=== PATIENT | female | born 2005 | race Caucasian/White ===

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

== ENCOUNTER 2023-01-05 13:18 | Outpatient (CLI) | payer OTHER, SELFPAY ==
[2023-01-05 15:19] LABS: Basophils Percent Auto 0.2 % (0.2-1.2); Eosinophils Percent Auto 0.2 % (0-4.4); Hematocrit 34.3 % (37.0-47.0); Hemoglobin 11.3 g/dL (12.0-15.0); Immature Granulocyte Absolute 0.07 K/mm3 (0.00-0.031); Immature Granulocyte Percent A 0.6 % (0-0.5); Lymphocytes Absolute Auto 2.74 K/mm3 (0.9-3.2); Mean Corpuscular HGB Conc 32.9 g/dl (32-36); Mean Corpuscular Hemoglobin 29.9 pg (26-34); Mean Corpuscular Volume 90.7 fl (80-100); Mean Platelet Volume 10.5 fl (7.4-10.4); Monocytes Absolute Auto 0.4 K/mm3 (0.1-0.6); Monocytes Percent Auto 3.5 % (2.6-8.5); Neutrophils Absolute Auto 9.1 K/mm3 (1.3-6.7); Neutrophils Percent Auto 73.5 % (45.5-73.1); Platelet Count Result 271 k/mm3 (150-375); Red Blood Count 3.78 M/mm3 (4.2-5.4); Red Cell Distribution Width 13.2 % (11.5-14.5); White Blood Count 12.4 K/mm3 (4.5-10.0)
[2023-01-05 15:27] LABS: Glucose 1 Hour PP 50gm Dose 104 mg/dL
[2023-01-05 16:09] LABS: HIV 1/2 Ab P24 Ag Result Negative (Negative)
[2023-01-06 09:44] LABS: Rapid Plasma Reagin Non-Reactive (NonReactive)
== END 2023-01-05 13:19 | disposition home or self-care (01) ==
PROVIDERS: PCP Family Medicine
DX: Z36.9 Encounter for antenatal screening, unspecified (principal); Z3A.00 Weeks of gestation of pregnancy not specified
CPT/HCPCS: 36415; 82947; 85025; 86592; 86703; 86850; 86880; 86902; G0432

== ENCOUNTER 2023-07-30 11:25 | Outpatient (CLI) | payer OTHER, SELFPAY ==
[2023-07-30 11:48] LABS: Hematocrit 38.6 % (37.0-47.0); Hemoglobin 12.2 g/dL (12.0-15.0); Mean Corpuscular HGB Conc 31.6 g/dl (32-36); Mean Corpuscular Hemoglobin 26.3 pg (26-34); Mean Corpuscular Volume 83.4 fl (80-100); Mean Platelet Volume 10.4 fl (7.4-10.4); Platelet Count Result 369 k/mm3 (150-375); Red Blood Count 4.63 M/mm3 (4.2-5.4); Red Cell Distribution Width 13.9 % (11.5-14.5); White Blood Count 9.8 K/mm3 (4.5-10.0)
[2023-07-30 12:07] LABS: Alanine Aminotransferase 20 U/L (6-35); Albumin Level 4.4 g/dL (3.7-5.6); Alkaline Phosphatase 73 U/L (45-116); Anion Gap 11 mmol/L (4-12); Aspartate Amino Transferase 20 U/L (14-36); Bilirubin,Total 0.9 mg/dL (0.2-1.3); Blood Urea Nitrogen 10 mg/dL (8-21); CRP < 0.5 mg/dL (<1.0); Calcium 9.6 mg/dL (8.9-10.7); Carbon Dioxide 23 mmol/L (22-30); Chloride 106 mmol/L (98-107); Estimated Glomerular Filt Rate > 60; Glucose 75 mg/dL (65-110); Potassium 3.6 mmol/L (3.4-5.0); Sodium 140 mmol/L (134-143)
[2023-07-30 12:37] LABS: Erythrocyte Sedimentation Rate 21 mm/hr (0-20)
== END 2023-07-30 11:26 | disposition home or self-care (01) ==
LOC: ANHLAB 11:26
PROVIDERS: PCP Family Medicine; Visit Provider Nurse Practitioner
DX: G89.29 Other chronic pain (principal); K21.9 Gastro-esophageal reflux disease without esophagitis; K60.2 Anal fissure, unspecified; K92.1 Melena; R10.9 Unspecified abdominal pain; R11.2 Nausea with vomiting, unspecified; R13.10 Dysphagia, unspecified
CPT/HCPCS: 36415; 80053; 84443; 85027; 85652; 86140

== ENCOUNTER 2023-08-30 11:13 | Outpatient (CLI) | payer OTHER, SELFPAY ==
--- NOTE | ~2023-08-30 | XR_ITS ---
Lumbosacral Spine: AP and lateral views Clinical History: Pain Findings: The normal lordotic curve is maintained. The vertebral bodies and posterior elements are i ntact. The intervertebral disc spaces are preserved. There are moderate facet joint degenerative kavon nges from L3 through S1. The sacroiliac joints are normally outlined. Impression: Facet arthropathy lower lumbar spine, as above. Reviewed, dictated and finalized at location M. Impression: Facet arthropathy lower lumbar spine, as above.
== END 2023-08-30 11:14 | disposition home or self-care (01) ==
PROVIDERS: PCP Family Medicine; Visit Provider Nurse Practitioner Adult Health
DX: M54.10 Radiculopathy, site unspecified (principal)
CPT/HCPCS: 72100

== ENCOUNTER 2023-09-21 15:00 | Outpatient (RCR) | payer OTHER, SELFPAY ==
--- NOTE | 2023-09-14 16:11 | PTOPEVAL1 ---
Assessment and note entered by Lenora Fan, PT Evaluation Information Assessment Status Evaluation Diagnosis Radiculopathy lumbar region Therapy Conditions weakness, postural deficits, balance and gait impairments Onset approx 3 months ago Subjective Information Pt reports waking up to excruciating pain from her back that radiates down to legs and feet. States she tried taking motrin, rest and warm shower but nothing seems to help. states MD prescribed steroids pills and anti-inflammatory medication, pain did not subside. Aggravated by prolonged position, bending squatting, lifting and carrying carseat. States having difficulty sleeping, driving, stairs ambulation and sitting in bathtub, toilet. relieved by changing positions, putting pillows between the legs and taking motrin. Pt.'s goal is to be able to perform ADLs and IADLs without pain and discomfort. Reported Pain Level Pain Score 6: Self Report Assessment PT Clinical Summary Pt presents with increased pain to low back radiating to BLE with numbness all the way to B feet, limited spinal and BLE ROM, weakness, postural impairments and gait deficits impacting ADLs and IADLs at this time. Skilled PT necessary to improve function without discomfort. Plan of Care Interventions Electrical Stimulation,Hot Pack/Cold Pack,Manual Therapy,Neuro Re-education,Patient/Caregiver Education,Therapeutic Activities,Therapeutic Exercise PT Services Indicated Yes Treatment Frequency and 2x/week for 10 visits Duration These treatments will address the objective and functional deficits as defined above. The patient will be advanced safely and appropriately in order for the patient to progress towards his/her prior level of function. Additional exercises will be introduced and as well as a comprehensive home exercise program upon discharge, if needed, ?to ensure carryover of functional gains achieved in the clinic. This treatment plan has been reviewed and agreement upon by the patient.
--- NOTE | 2023-09-29 15:28 | PCPTNOTE ---
No call No show this date. LAN
--- NOTE | 2023-10-07 16:23 | PCPTNOTE ---
Admitting Provider: Attending Provider: Elana Johnson APRN Patient:Chela Cid Date of :2005 Patient has had multiple sessions in which she was a no call no show and has not returned for any further treatments since 09/21/2023, therefore she will be discharged at this time. Patient?s initial visit was on 09/14/2023 11:00 and she had a total of 2 visits. The goals have not been met. Thank you for referring this patient to [facility]. Please review, sign, date and return this discharge summary AMY. I have been updated about the patient's current status and I agree with discharge from the above service at this time. Referring Physician Date
== END 2023-10-22 14:18 | disposition home or self-care (01) ==
LOC: ANHHIPT 15:00
PROVIDERS: PCP Family Medicine; Visit Provider Nurse Practitioner Adult Health
DX: M54.16 Radiculopathy, lumbar region (principal)
CPT/HCPCS: 97014; 97110; 97112; 97140; 97161; 97530; G0283

== ENCOUNTER 2024-02-17 14:07 | Outpatient (CLI) | payer OTHER, SELFPAY ==
--- NOTE | ~2024-02-17 | XR_ITS ---
EXAMINATION: XR_CERV2-3V_CR DATE: 02/17/2024 14:23 INDICATION: Back pain. Leg and hand numbness. TECHNIQUE: 3 views of cervical spine were obtained. COMPARISON: None. FINDINGS: There is hypolordosis of cervical spine. Vertebral body heights are normal. Intervertebral disc heights are normal. The facet joints are normal. No central canal stenosis or prevertebral soft tissue swelling. IMPRESSION: 1. No etiology for the patient's symptoms. Reviewed, dictated and finalized at location A.
== END 2024-02-17 14:08 | disposition home or self-care (01) ==
LOC: ANHIMG 14:11
PROVIDERS: PCP Family Medicine
DX: M54.2 Cervicalgia (principal); R20.0 Anesthesia of skin; R20.2 Paresthesia of skin
CPT/HCPCS: 72040